=== PATIENT | female | born 1960 | race American Indian/Alaskan Native ===

== ENCOUNTER → 2024-05-02 | Outpatient (CLI) | payer BC, OTHER, SELFPAY ==
--- NOTE | 2024-05-02 12:20 | XR_ITS ---
Examination: Bone densitometry Date and time of exam:May 02, 2024 1252 hours INDICATIONS: Menopause age 47 hysterectomy age 50 rheumatoid arthritis diagnosis Technique: Lumbar spine and hip total bone mineralization values of an calculated. Peak reference and age match control results have been displayed. Findings: Lumbar spine total bone mineralization is1.018 gm/cm2. This is 0.3 standard deviations below peak reference. This is 1.4 standard deviations above age-matched controls. Hip total bone mineralization is 0.848 gm/cm2 This is 0.8 standard deviations below peak reference. This is 0.4 standard deviations above age-matched controls Impression: There is normal mineralization based on lumbar spine measurements. There is normal mineralization based on hip measurements Lumbar mineralization is decreased 14.5% compared with November 06, 2010 Hip mineralization is decreased 14.8% compared with November 06, 2010
== END | disposition home or self-care (01) ==
PROVIDERS: Referring Provider Nurse Practitioner Family; Visit Provider Nurse Practitioner Family
DX: E55.9 Vitamin D deficiency, unspecified (principal); M19.90 Unspecified osteoarthritis, unspecified site; M25.552 Pain in left hip; Z78.0 Asymptomatic menopausal state
CPT/HCPCS: 77080

== ENCOUNTER 2024-08-11 08:52 | Outpatient (RCR) | payer BC, OTHER, SELFPAY ==
--- NOTE | 2024-08-11 14:18 | CTCCONSULT_ITS ---
Patient: ELIO BANERJEE : 1960 MR#: [id number] Page 2 of 2 CONSULTATION NOTE DATE OF CONSULTATION: 08/11/2024 NAME: ELIO BANERJEE ACCOUNT: [id number] : 1960 AGE: 63 REFERRING PHYSICIAN: Heather Reyes) PRIMARY PHYSICIAN: Heather Reyes) Summary--- Elio, a female with thrombocytopenia and anemia, presented for routine follow-up. [place] [facility] reported occasional minor bruising and petechiae after trauma but denied significant bleeding episodes. Examination revealed small bruises and sun kimberly ge. Labs showed platelets at 125,000/?L, improved from previous readings (120,000-128,000/?L). She maintained a plant-based diet with daily vegetable juicing for two years, for platelet support. The plan includes continuing her current dietary regimen, monitoring for bleeding signs, and routine follow-up for platelet counts. REASON FOR VISIT: Chronic thrombocytopenia HISTORY OF PRESENT ILLNESS: Subjective: Chief Complaint Routine follow-up for thrombocytopenia History of Present Illness Elio is a patient with a history of low platelet counts and anemia who presents for follow-up. She reports occasional minor bruising, particularly when she bumps herself, resulting in small bruises under her skin. The patient describes her bruising as small, dot-like lesions that appear after minor trauma. She notes these bruises are different from the age spots or sun damage she has on her skin. Elio denies any significant bleeding episodes, such as prolonged nosebleeds, rectal bleeding, or coughing up blood. She has been proactive in managing her health, particularly her history of anemia, through dietary changes and self-education. Elio reports adopting a more plant-based diet and incorporating daily juicing into her routine for the past two years. She prepares homemade juices using various vegetables and fruits, including beets, matt, turmeric, celery, cucumber, apple, lemon, spinach, and kale. The patient believes this dietary change has positively impacted her health, particularly in managing her arthritis symptoms and potentially supporting her platelet levels. The patient mentions a history of arthritis, for which she has been [place] [facility] She declined pain medication for this condition, preferring to manage her symptoms through diet and lifestyle changes. Elio reports good adherence to her current health regimen and expresses satisfaction with her current health status. Medications and Supplements - Used to increase platelet count. Review of Systems Skin: Positive for easy bruising when bumping against objects. HEENT: Positive for occasional epistaxis. Gastrointestinal: Positive for occasional rectal bleeding. Musculoskeletal: Positive for arthritis symptoms. Hematological/Lymphatic: Positive for petechiae. Objective: Physical Examination Skin: Sun damage and age spots noted. Small bruises observed under the skin where patient bumps herself. No widespread petechiae or purpura noted. Laboratory, Imaging, and Diagnostic Test Results - Date: ThuAug 11 2024 - Platelets: 125,000/?L - Previous results: - Platelets: 120,000/?L, 128,000/?L (highest), 121,000/?L (dates not specified) - Bone density scan: Normal (date not specified) OTHER MEDICAL HISTORY/CONDITIONS: Thrombocytopenia Chronic low back pain [place] - 1953 Covid - August 2021 [facility]-?2015 ?x?2?- FAMILY HISTORY: Father:?Lung?-dx?age??22?and?77 Sibling: Brother - Colon/pancreatic - dx 64 Cancer History:?Maternal grandmother - cervical - dx 80 SOCIAL HISTORY: Occupational?History:?[employer] - [employer] Education?Level:?College Graduate, 2 year degree Marital?Status:? Tobacco?Use:?Denies ETOH?Use:?Denies Drug?Note:?Denies Social?History?Note:?Lives?with? [employer] HISTORY: Menarche?-?Age:?14 Menopause:?2012 :?2 Live?Births:?2 Age?1st?:?23 MEDICATIONS: 1. estradioL - 0.01 2 (0.1 mg/gram) Every 2 Days 2. [place] 3 - [phone] mg 1 Capsule Twice a Day 3. Vitamin D2 - 1,000 unit 1 Capsule Daily Medications Last Reconciled by Danica Rogers RN on 08/11/2024 ALLERGIES: ondansetron HCl REVIEW OF SYSTEMS: A complete 14-point review of systems was performed and is negative except as noted in interval history. PHYSICAL EXAMINATION: VITAL SIGNS: B/P?132/72, Height?63?inches, Oxygen?Saturation?99% Weight?131?lbs PAIN: 5 - Between moderate and severe pain ECOG Performance Status: 0 - Asymptomatic and fully active GENERAL APPEARANCE: Appears well, in no apparent distress, appropriately interactive. HEENT: Normocephalic, no temporal wasting, normal conjunctiva, no scleral icterus, normal hearing, lips without lesions, neck normal range of motion. CARDIOVASCULAR: Not assessed. PULMONARY: Normal respiratory effort, no respiratory distress or use of accessory muscles, speaking in full sentences, no tachypnea. EXTREMITIES: No pedal edema or cyanosis. SKIN: Normal skin appearance. NEUROLOGIC: Alert and oriented x4. PSHYCHIATRIC: Appropriate affect, mood normal, behavior normal, intact thought and speech. LABORATORY DATA: I have personally reviewed and interpreted each of the patient?s relevant lab tests, abnormal findings are below: Date 01/14/22 04/15/22 ??WHITE?BLOOD?COUNT?(Thou/mm3) ? 6.2 ??RED?BLOOD?COUNT?(Miln/mm3) ? 4.06 ??HEMOGLOBIN?(gm/dl) ? 12.8 ??HEMATOCRIT?(%) ? 37.9 ??PLATELET?COUNT?(Thou/mm3) ? 121?L ??NEUTROPHILS?%,?AUTO?(%) ? 55 ??LYMPH?%,?AUTO?(%) ? 35 ??NEUTROPHILS,?AUTO?(Thou/mm3) ? 3.4 ??GLUCOSE,RANDOM?(mg/dL) ? 112?H ??BLOOD?UREA?NITROGEN?(mg/dL) ? 11 ??CREATININE?(mg/dL) ? 0.70 ??SODIUM?(mmol/L) ? 141 ??POTASSIUM?(mmol/L) ? 4.1 ??CHLORIDE?(mmol/L) ? 106 ??CrCl?(CandG)?(ml/min) ? 79.77 ??AST/SGOT?(Unit/L) ? 24 ??ALT/SGPT?(Unit/L) ? 17 ??ALKALINE?PHOSPHATASE?(Unit/L) ? 73 ??BILIRUBIN,?TOTAL?(mg/dL) ? 0.4 ??PROTEIN?TOTAL?(gm/dl) ? 7.2 ??ALBUMIN,?SERUM?(gm/dl) ? 4.5 ??GLOBULIN?(gm/dl) ? 2.7 ??ALBUMIN/GLOBULIN?RATIO ? 1.7 ??CALCIUM,?SERUM?(mg/dL) ? 9.3 ??CALCIUM?SERUM?(CORRECTED)?(mg/dL) ? 9.3 ??TOTAL?IRON?BINDING?CAP?(S*)?(mcg/dL) 367 343 ??UNBOUND?IBC?(mcg/dL) 297?H 267 ASSESSMENT/PLAN: Assessment and Plan: Elio, a female patient with a history of anemia and thrombocytopenia, presents for follow-up of her platelet count and overall health status. Thrombocytopenia Assessment: Patient has a history of thrombocytopenia with previous platelet counts ranging from 100,000 to 128,000/?L. Most recent platelet count in March was 125,000/?L. Patient reports minor bruising when bumping herself, with small bruises forming under the skin. No significant bleeding symptoms reported. Current lab work shows improvement in platelet count, though exact value not specified. Patient has been managing her condition through dietary changes, including a plant-based diet and daily juicing with nutrient-rich ingredients. Plan: - Continue current dietary regimen, including daily vegetable and fruit juicing - Monitor for signs of platelet bleeding (e.g., petechiae, prolonged bleeding from minor cuts, nose bleeds, rectal bleeding) - Educate patient on symptoms that warrant immediate medical attention (e.g., excessive bruising, prolonged bleeding) - Routine follow-up to monitor platelet count and overall health status History of Anemia Assessment: Patient reports a history of anemia for the majority of her life. She has made significant dietary changes, including increased consumption of iron-rich foods and daily juicing. Current lab work shows normal hemoglobin levels with no signs of anemia. Plan: - Continue current dietary regimen, including iron-rich foods and daily juicing - Monitor for symptoms of anemia (e.g., fatigue, weakness, shortness of breath) - Routine follow-up to assess hemoglobin levels and overall health status Arthritis Assessment: Patient reports a history of arthritis affecting her back from neck down. She has been managing symptoms through dietary changes, particularly the incorporation of anti-inflammatory foods in her daily juice. Patient declined pain medication and reports improvement in symptoms with her current regimen. Plan: - Continue current dietary regimen, including anti-inflammatory ingredients in daily juice (e.g., turmeric, matt) - Monitor arthritis symptoms and report any significant changes or worsening of pain - Routine follow-up to assess arthritis management and overall health status ORDERS: Order # Description [id number] CBC with Auto Diff + Comprehensive Metabolic Panel - 12 [id number] Lactate Dehydrogenase (LDH) + Assay Of Haptoglobin Quant [id number] MD Follow Up 6 Month RETURN TO CLINIC: BILLING AND COMPLIANCE: I reviewed external records from providers outside my specialty as summarized above. I spent a total of 50 minutes on this patient?s care on the day of their visit excluding time spent related to any billed procedures. This time includes time spent with the patient as well as time spent documenting in the medical record, reviewing patients records and tests, obtaining history, placing orders, communicating with other healthcare professionals, counseling the patient, family or caregiver, and/or care coordination for the diagnoses above. Electronically Signed by: Shahbaz Pina MD T: 10:57 AM CC: PCP: Heather Hearn (tuleriver) Referring: Heather Hearn (tuleriver) This document was completed utilizing speech recognition software. Grammatical errors, random word insertions, pronoun errors, and incomplete sentences are an occasional consequence of this system due to software limitations, ambient noise, and hardware issues. Any formal questions or concerns about the content, text or information contained within the body of this dictation should be directly addressed to the provider for clarification.
== END 2024-08-20 23:59 | disposition home or self-care (01) ==
LOC: SCTC 08:52
PROVIDERS: PCP Nurse Practitioner Family; Referring Provider Nurse Practitioner Family; Visit Provider Internal Medicine Hematology & Oncology
DX: D69.6 Thrombocytopenia, unspecified (principal); D64.9 Anemia, unspecified; M47.819 Spondylosis without myelopathy or radiculopathy, site unspecified
CPT/HCPCS: 99213; G0463

== ENCOUNTER → 2024-08-25 | Outpatient (CLI) | payer BC, OTHER, SELFPAY ==
--- NOTE | 2024-08-25 10:03 | XR_ITS ---
Examination: Sacrum and coccyx 3 views TECHNIQUE: AP inclined AP lateral sacrum fracture 3 views Date and time: August 25, 2024 1050 hours INDICATIONS: Injury to the sacrum 11 years ago, sacral pain beginning 2 weeks ago. FINDINGS: Mild bilateral sacroiliitis Symmetrical sacral foramina Old fracture deformity fifth sacral segment No acute fracture IMPRESSION: Mild old fracture deformity fifth sacral segment, no acute fracture
== END | disposition home or self-care (01) ==
PROVIDERS: PCP Nurse Practitioner Family; Referring Provider Nurse Practitioner Family; Visit Provider Nurse Practitioner Family
DX: M54.50 Low back pain, unspecified (principal); S39.82XS Other specified injuries of lower back, sequela; X58.XXXS Exposure to other specified factors, sequela
CPT/HCPCS: 72220